=== PATIENT | female | born 1965 | race Caucasian/White ===

== ENCOUNTER 2024-01-29 09:02 | Emergency (ER) | payer SELFPAY ==
[2024-01-29 09:19] VITALS: BP 124/65; PULSE 70; RESP 20; TEMP 37.4; O2SAT 96; BMI 33.3
--- NOTE | 2024-01-29 09:21 | EXP.UTC ---
Discharge Plan Disposition Patient Disposition: Home, Self-Care Condition: Good Prescriptions Prescriptions: New clindamycin HCl 300 mg capsule 300 mg PO Q8H 10 Days Qty: 30 0RF Referrals Follow up/Referrals: Aleta España APRN [Primary Care Provider] - See instructions Activity Restrictions/Add. Instructions Additional Instructions/Restrictions: Make sure to follow up with your Dentist as scheduled Take medication as prescribed Use dental balls and discussed in the [facility] Over the counter Motrin and/or Tylenol for pain and fever If medication upsets stomach, take a probiotic his may help Clinical Impressions Clinical Impression: Dental abscess Instructions Patient Instructions: Tooth Abscess, Clindamycin Print Language Print Language: Frisian Discharge ED Provider[place] A[place] Crisostomo [facility] [place] General Stated complaint: swelling in face Mode of Arrival: Ambulatory Source of Information: Patient Time Seen by Provider: 01/29/24 09:22 Description of Symptoms (Recalled from Triage Doc. by RN): FACIAL SWELLING, POSSIBLE TOOTH ABSCESS HEENT Symptoms (Recalled from RN notes): Yes Resp Symptoms (Recalled from RN notes): No Skin Symptoms (Recalled from RN notes): No MS Symptoms (Recalled from RN notes): No Functional Status (Recalled from RN notes): WNL History of Present Illness Provider Complaint: Patient states that she has been having pain and tenderness on back tooth on her right lower gumline States today her right lower jaw was swollen and painful States that she made an appointment with the dentist but it is not for a few weeks away and they said she needed antibiotics so she came in to get some to help with the infection States she is not allergic to amoxicillin but it makes her vomit and hard on her stomach Related Data Previous Rx's ?Medication ?Instructions ?Recorded clindamycin HCl 300 mg capsule 300 mg PO Q8H 10 days #30 caps 01/29/24 Allergies Allergy/AdvReac Type Severity Reaction Status Date / Time No Known Allergies Allergy Verified 08/09/17 11:12 Worker's Comp Is this a Worker's Comp case?: No [facility] Disclaimer: The information contained in this section may have been updated after the patient was seen, as this information can be updated by other users. Social History Smoking Status: Never smoker alcohol intake: current alcohol intake frequency: holidays/special occasions only current occupational status: employed Travel in the last 8 weeks: None ROS Obtained: Yes All systems reviewed & no additional complaints except as documented and Yes Systems reviewed as appropriate & no additional complaints except as documented Constitutional Constitutional: Reports system reviewed and no additional complaints, except as documented and Reports as per HPI ENT Ears, Nose, Mouth, and Throat: Reports system reviewed and no additional complaints, except as documented, Reports as per HPI and Reports dental pain Cardiovascular Cardiovascular: Reports system reviewed and no additional complaints, except as documented and Reports as per HPI Respiratory Respiratory: Reports system reviewed and no additional complaints, except as documented and Reports as per HPI Gastrointestinal Gastrointestingal: Reports system reviewed and no additional complaints, except as documented and as per HPI Physical Exam General General appearance: alert and in no apparent distress ENT ENT exam: Present mucous membranes moist Expanded ENT Exam Teeth exam: Present dental tenderness #, gingival swelling and other (swelling and redness noted right lower jawline, appears back tooth possibly has a crack in it) Respiratory Respiratory exam: Present normal lung sounds bilaterally; Absent respiratory distress or wheezes Cardiovascular Cardiovascular exam: Present regular rate, normal rhythm and normal heart sounds Neurological Exam Neurological exam: Present alert, oriented X3 and normal gait Medical Decision Making Medical Records Screening: Per USPSTF and CDC recommendations, given the prevalence of disease in our region, it is our hospital?s policy to screen for HIV and viral Hepatitis for all patients aged 18 and over and those with ongoing risk factors. Jose Inquiry Pt receiving controlled substance: No Jose was queried for this patient: No Vital Signs: 01/29/24 09:19 Temperature 99.3 F Temperature Source Oral Pulse Rate [Left Radial] 70 Respiratory Rate 20 Blood Pressure [Left Arm] 124/65 Blood Pressure Mean [Left Arm] 84 02 Sat by Pulse Oximetry 96 Medical Decision Narrative: Patient states that she is not allergic to amoxicillin but it makes her extremely ill and vomiting requesting medication other than that that contains amoxicillin will do Clindamycin
[2024-01-29] MEDS: LIDOCAINE 2% VISCOUS SOL 15ML UDC 15 ML PO (09:25)
[2024-01-29] MEDS: TETRACAINE/BENZOCAINE/BUTAMBEN 56 GM SPRAY TP (09:26)
[2024-01-29 09:35] VITALS: BP 124/65; PULSE 70; RESP 20; TEMP 37.4
== END 2024-01-29 09:37 | disposition home or self-care (01) ==
PROVIDERS: Emergency Provider Nurse Practitioner; PCP Nurse Practitioner Family
DX: R22.0 Localized swelling, mass and lump, head (principal); K04.7 Periapical abscess without sinus
CPT/HCPCS: 99212; G0381